=== PATIENT | female | born 1995 | race Caucasian/White ===

== ENCOUNTER 2017-08-28 03:15 | Emergency (ER) | payer MEDICAID, OTHER ==
[2017-08-28] MEDS ORDERED: Amoxicillin/Clavulanate TAB* 875 MG PO ONE (05:11)
--- NOTE | 2017-08-28 05:14 | ED ---
Rita Garcia Rebecca, scribed for Nba Gavin MD on 08/28/17 at 0450 . Skin Complaint - HPI Summary HPI Summary: Pt is a 22 y/o F who presents to ED c/o suspected spence spider bite. Pt reports that she has been staying at her friend's house where there are spence spiders. Two nights ago at 2300 she noticed the bite on her R buttock. Associated pain is currently severe, ranked 8/10. Sx aggravated and alleviated by nothing. Denies N/V and fever. Pt states that [employer] the bite "had two black holes" and she tried squeezing it, releasing a small amount of clear liquid. States that she has previously experienced a similar animal bite which she treated with Abx ( does not remember the name) and black drawing salve. NO chance of . - History of Current Complaint Chief Complaint: EDRashSkinAbscess Stated Complaint: SPIDER BITE RIGHT BUTTCHEEK Hx Obtained From: Patient Hx Last Menstrual Period: irregular, no menses for past 5 months Onset/Duration: Started Days Ago - 2 days ago, Still Present Current Severity: Severe Pain Intensity: 8 Pain Scale Used: 0-10 Numeric Skin Location: Other: - R buttock Character: Pain Aggravating Symptom(s): Nothing Alleviating Symptom(s): Nothing Associated Signs & Symptoms: Negative - Allergy/Home Medications Allergies/Adverse Reactions: Allergies Allergy/AdvReac Type Severity Reaction Status Date / Time Sulfa Antibiotics Allergy Nausea And Verified 08/28/17 03:24 Vomiting PMH/Surg Hx/FS Hx/Imm Hx Endocrine/Hematology History: Denies: Hx Diabetes Respiratory History: Denies: Hx Asthma - Surgical History Surgery Procedure, Year, and Place: tonsillectomy Infectious Disease History: No Infectious Disease History: Denies: Traveled Outside the [place] in Last 30 Days - Family History Known Family History: Negative: Diabetes - Social History Alcohol Use: Occasionally Substance Use Type: Reports: None Smoking Status (MU): Heavy Every Day Tobacco Smoker Type: Cigarettes Amount Used/How Often: 1/2 pack daily Review of Systems Negative: Fever Negative: Vomiting, Nausea Positive: Other - Suspected spence spider bite to the R buttock with associated severe pain All Other Systems Reviewed And Are Negative: Yes Physical Exam Triage Information Reviewed: Yes Vital Signs On Initial Exam: Initial Vitals Temp Pulse Resp BP Pulse Ox 98.4 F 97 16 121/74 95 08/28/17 03:20 08/28/17 03:20 08/28/17 03:20 08/28/17 03:20 08/28/17 03:20 Vital Signs Reviewed: Yes Appearance: Positive: Well-Appearing, No Pain Distress Skin: Positive: Warm, Dry, Other - R buttock has a 3 cm area of induration and erythema that is consistent with cellulitis with no draining abscess, no bleeding and no purulent drainage. no crepitus. Head/Face: Positive: Normal Head/Face Inspection Eyes: Positive: Normal ENT: Positive: Normal ENT inspection Neck: Positive: Supple Respiratory/Lung Sounds: Positive: Clear to Auscultation, Breath Sounds Present Cardiovascular: Positive: RRR, Pulses are Symmetrical in both Upper and Lower Extremities Abdomen Description: Positive: Nontender, Soft Bowel Sounds: Positive: Present Musculoskeletal: Positive: Normal, Strength/ROM Intact Neurological: Positive: Normal, Sensory/Motor Intact, Alert, Oriented to Person Place, Time Psychiatric: Positive: Normal Diagnostics - Vital Signs Vital Signs Temp Pulse Resp BP Pulse Ox 08/28/17 03:20 98.4 F 97 16 121/74 95 - Laboratory Lab Statement: Any lab studies that have been ordered have been reviewed, and results considered in the medical decision making process. Course/Dx - Course Course Of Treatment: exam consistent with insect bite with surrounding cellulitis, started on po abx, pt declines preg test curently, denies . no fevers or chills, instructed to fu with pmd. agrees to and understands dc instructions. - Diagnoses Provider Diagnoses: Cellulitis Discharge - Discharge Plan Condition: Good Disposition: HOME Prescriptions: Amoxicillin/Clavulanate TAB* [Augmentin TAB 875*] 875 mg PO BID #20 tab Patient Education Materials: Cellulitis (ED) Additional Instructions: PLEASE MAKE AN APPOINTMENT FIRST THING IN THE MORNING TO BE SEEN BY YOUR PRIMARY CARE PHYSICIAN WITHIN 2-3 DAYS PLEASE RETURN TO THE EMERGENCY ROOM IF YOU HAVE ANY WORSENING OR CONCERNING SYMPTOMS The documentation as recorded by the Rita williamson Rebecca accurately reflects the service I personally performed and the decisions made by me, Nba Gavin MD.
[2017-08-28 05:24] VITALS: BP 124/77
== END 2017-08-28 05:22 | disposition home or self-care (01) ==
LOC: ED 03:15
DX: L03.317 Cellulitis of buttock (principal); T63.301A Toxic effect of unspecified spider venom, accidental (unintentional), initial encounter; Y92.9 Unspecified place or not applicable; F17.210 Nicotine dependence, cigarettes, uncomplicated
CPT/HCPCS: 99282; A9270-GY